=== PATIENT | male | born 1965 | race Two or more races ===

== ENCOUNTER → 2022-11-10 | Emergency (ER) | payer OTHER ==
[~2022-11-10] VITALS: Ht 180.3 cm; Wt 136.1 kg
== END | disposition home or self-care (01) ==
LOC: ER 00:47
DX: L03.115 Cellulitis of right lower limb (principal)

== ENCOUNTER 2023-02-12 02:47 | Emergency (ER) | payer OTHER ==
[~2023-02-12] VITALS: Ht 182.9 cm; Wt 131.5 kg
[2023-02-12] MEDS ORDERED: LASIX40 MG (03:05)
[2023-02-12] MEDS ORDERED: KETO10TA2 PO (04:50)
[2023-02-12] MEDS ORDERED: MUPIROCIN1 G1 TOP (04:50)
== END 2023-02-12 04:56 | disposition home or self-care (01) ==
LOC: ER 02:47
DX: I83.019 Varicose veins of right lower extremity with ulcer of unspecified site (principal)

== ENCOUNTER 2023-09-07 13:20 | Inpatient (IN) | payer OTHER ==
[~2023-09-07] VITALS: Ht 177.8 cm; Wt 127.0 kg
[~2023-09-07 13:20] MED LIST: KETO10TA2 PO; LASIX40 MG; MUPIROCIN1 G1 TOP
[2023-09-07 16:34] LABS: URINE APPEARANCE Clear; URINE BILIRRUBIN Negative (NEGATIVE); URINE BLOOD Negative; URINE COLOR Yellow; URINE GLUCOSE Negative (NEGATIVE); URINE LEUKOCYTE Negative; URINE NITRATE Negative; URINE PROTEIN Negative (NEGATIVE)
[2023-09-07 16:38] LABS: URINE BACTERIA 11.3 uL (0.0-1933); URINE RBC 3.3 uL (0.0-20.8)
[2023-09-07 16:47] LABS: URINE WBC 1.2 uL (0.0-23.2)
[2023-09-07 16:48] LABS: MEAN CORPUSCULAR HGB CONC 28.4 g/dl (32.0-36.0); RED BLOOD COUNT 3.11 M/uL (4.00-6.00); RED CELL DISTRIBUTION WIDTH 20.4 % (11.5-14.5)
[2023-09-07 16:55] LABS: CALCIUM 8.8 mg/dL (8.5-10.1); CREATININE SERUM 1.16 mg/dL (0.70-1.30); GFR 65.13; POTASSIUM 4.02 mEq/L (3.5-5.1)
[2023-09-07 17:09] LABS: HEMATOCRIT 17.5 % (39.0-48.0); MEAN CELL VOLUME 56.3 fL (80.0-100.00)
[2023-09-07 20:00] LABS: PLATELET COUNT 805 K/uL (150-450)
[2023-09-08 00:53] LABS: INR 1.08; PARTIAL THROMBOPLASTIN TIME 27.9 SECONDS (22.0-34.0); PROTHROMBIN TIME 11.3 SECONDS (9.0-11.5)
[2023-09-09 20:41] LABS: MEAN CORPUSCULAR HGB CONC 30.6 g/dl (32.0-36.0); PLATELET COUNT 684 K/uL (150-450); RED BLOOD COUNT 3.82 M/uL (4.00-6.00)
[2023-09-09 20:42] LABS: MEAN CORPUSCULAR HEMOGLOBIN 19.3 pg (27.00-32.0); RED CELL DISTRIBUTION WIDTH 27.9 % (11.5-14.5)
[2023-09-09 20:44] LABS: HEMOGLOBIN 7.4 g/dL (13-16.00)
[2023-09-10 18:46] LABS: HEMATOCRIT 26.9 % (39.0-48.0); PLATELET COUNT 701 K/uL (150-450); RED BLOOD COUNT 4.11 M/uL (4.00-6.00)
[2023-09-10 18:47] LABS: HEMOGLOBIN 8.1 g/dL (13-16.00); MEAN CELL VOLUME 65.6 fL (80.0-100.00); MEAN CORPUSCULAR HEMOGLOBIN 19.7 pg (27.00-32.0); RED CELL DISTRIBUTION WIDTH 29.1 % (11.5-14.5)
[2023-09-11 01:33] LABS: HEMATOCRIT 29.6 % (39.0-48.0); MEAN CORPUSCULAR HGB CONC 31.8 g/dl (32.0-36.0)
[2023-09-11 01:38] LABS: MEAN CELL VOLUME 67.3 fL (80.0-100.00); PLATELET COUNT 695 K/uL (150-450); RED CELL DISTRIBUTION WIDTH 31.4 % (11.5-14.5)
[2023-09-11 01:39] LABS: HEMOGLOBIN 9.4 g/dL (13-16.00); MEAN CORPUSCULAR HEMOGLOBIN 21.3 pg (27.00-32.0)
[2023-09-11 16:49] LABS: HEMATOCRIT 33.3 % (39.0-48.0); HEMOGLOBIN 10.3 g/dL (13-16.00); MEAN CORPUSCULAR HEMOGLOBIN 20.6 pg (27.00-32.0); MEAN CORPUSCULAR HGB CONC 30.8 g/dl (32.0-36.0); PLATELET COUNT 754 K/uL (150-450); RED BLOOD COUNT 4.99 M/uL (4.00-6.00)
[2023-09-11 17:00] LABS: MEAN CELL VOLUME 66.8 fL (80.0-100.00)
[2023-09-11 17:05] LABS: FERRITIN 30.9 NG/ML (26-388)
[2023-09-11 18:24] LABS: ob POSITIVE (NEGATIVE)
[2023-09-12 06:23] LABS: HEMATOCRIT 30.8 % (39.0-48.0); HEMOGLOBIN 9.5 g/dL (13-16.00); MEAN CORPUSCULAR HEMOGLOBIN 21.3 pg (27.00-32.0); MEAN CORPUSCULAR HGB CONC 30.9 g/dl (32.0-36.0); PLATELET COUNT 640 K/uL (150-450); RED BLOOD COUNT 4.45 M/uL (4.00-6.00)
[2023-09-12 06:32] LABS: MEAN CELL VOLUME 69.1 fL (80.0-100.00); RED CELL DISTRIBUTION WIDTH 31.4 % (11.5-14.5)
[2023-09-12 06:54] LABS: ALBUMIN 2.8 gm/dL (3.4-5.0); BILIRUBIN TOTAL 0.93 mg/dL (0.3-1.2); CALCIUM 8.8 mg/dL (8.5-10.1); CREATININE SERUM 0.99 mg/dL (0.70-1.30); GFR 78.2; GLOBULINA 4.3 G/DL (2.4-3.5); MAGNESIUM 2.3 mg/dL (1.8-2.4); PHOSPHOROUS 3.4 mg/dL (2.5-4.9); POTASSIUM 4.7 mEq/L (3.5-5.1); TOTAL PROTEIN 7.1 gm/dL (6.4-8.2)
[2023-09-16 06:27] LABS: HEMATOCRIT 34.4 % (39.0-48.0); HEMOGLOBIN 10.8 g/dL (13-16.00); MEAN CELL VOLUME 70.9 fL (80.0-100.00); MEAN CORPUSCULAR HEMOGLOBIN 22.2 pg (27.00-32.0); MEAN CORPUSCULAR HGB CONC 31.2 g/dl (32.0-36.0); PLATELET COUNT 649 K/uL (150-450); RED BLOOD COUNT 4.85 M/uL (4.00-6.00); RED CELL DISTRIBUTION WIDTH 32.9 % (11.5-14.5)
[2023-09-20 11:19] LABS: HEMATOCRIT 33.3 % (39.0-48.0); HEMOGLOBIN 10.6 g/dL (13-16.00); MEAN CELL VOLUME 71.4 fL (80.0-100.00); MEAN CORPUSCULAR HEMOGLOBIN 22.7 pg (27.00-32.0); MEAN CORPUSCULAR HGB CONC 31.9 g/dl (32.0-36.0); PLATELET COUNT 626 K/uL (150-450); RED BLOOD COUNT 4.67 M/uL (4.00-6.00); RED CELL DISTRIBUTION WIDTH 31.6 % (11.5-14.5)
[2023-09-20 11:21] LABS: ALBUMIN 2.8 gm/dL (3.4-5.0); BILIRUBIN TOTAL 0.45 mg/dL (0.3-1.2); CALCIUM 9.1 mg/dL (8.5-10.1); CREATININE SERUM 0.88 mg/dL (0.70-1.30); GFR 89.58; GLOBULINA 4.3 G/DL (2.4-3.5); POTASSIUM 3.58 mEq/L (3.5-5.1); TOTAL PROTEIN 7.1 gm/dL (6.4-8.2)
[2023-09-23 06:52] LABS: HEMOGLOBIN 10.9 g/dL (13-16.00); MEAN CELL VOLUME 70.5 fL (80.0-100.00); MEAN CORPUSCULAR HGB CONC 31.3 g/dl (32.0-36.0); PLATELET COUNT 667 K/uL (150-450); RED BLOOD COUNT 4.96 M/uL (4.00-6.00)
[2023-09-23 06:53] LABS: RED CELL DISTRIBUTION WIDTH 31.7 % (11.5-14.5)
[2023-09-23 06:59] LABS: HEMOGLOBIN 10.9 g/dL (13-16.00); RED BLOOD COUNT 4.95 M/uL (4.00-6.00)
[2023-09-23 07:17] LABS: CALCIUM 8.7 mg/dL (8.5-10.1); CREATININE SERUM 0.92 mg/dL (0.70-1.30); GFR 85.1; POTASSIUM 4.23 mEq/L (3.5-5.1)
[2023-09-25 07:40] LABS: HEMATOCRIT 32.2 % (39.0-48.0); HEMOGLOBIN 9.8 g/dL (13-16.00); MEAN CELL VOLUME 71.1 fL (80.0-100.00); MEAN CORPUSCULAR HEMOGLOBIN 21.7 pg (27.00-32.0); MEAN CORPUSCULAR HGB CONC 30.5 g/dl (32.0-36.0); PLATELET COUNT 543 K/uL (150-450); RED BLOOD COUNT 4.53 M/uL (4.00-6.00)
[2023-09-25 07:43] LABS: RED CELL DISTRIBUTION WIDTH 32.1 % (11.5-14.5)
[2023-09-25 07:56] LABS: ALBUMIN 2.4 gm/dL (3.4-5.0); BILIRUBIN TOTAL 0.53 mg/dL (0.3-1.2); CALCIUM 8.5 mg/dL (8.5-10.1); CREATININE SERUM 0.84 mg/dL (0.70-1.30); GFR 94.52; GLOBULINA 3.7 G/DL (2.4-3.5); MAGNESIUM 2.1 mg/dL (1.8-2.4); PHOSPHOROUS 2.5 mg/dL (2.5-4.9); POTASSIUM 3.88 mEq/L (3.5-5.1); TOTAL PROTEIN 6.1 gm/dL (6.4-8.2)
[2023-09-25 07:57] LABS: C-REACTIVE PROTEIN 16.3 MG/DL (0.00-0.29)
[2023-09-25 08:18] LABS: PLATELET ESTIMATE INCREASED (NORMAL)
[2023-09-26 12:06] LABS: URINE APPEARANCE Clear; URINE BILIRRUBIN Negative (NEGATIVE); URINE BLOOD Negative; URINE COLOR Yellow; URINE GLUCOSE Negative (NEGATIVE); URINE LEUKOCYTE Negative; URINE NITRATE Negative; URINE PROTEIN Negative (NEGATIVE); URINE UROBILINOGEN 0.2 E.U./dl
[2023-09-26 12:08] LABS: URINE BACTERIA 6.2 uL (0.0-1933); URINE EPITHELIAL CELLS 2.1 uL (0.0-38.8); URINE RBC 20.2 uL (0.0-20.8); URINE WBC 2.6 uL (0.0-23.2)
[2023-09-29 06:41] LABS: HEMATOCRIT 33.8 % (39.0-48.0); HEMOGLOBIN 10.7 g/dL (13-16.00); MEAN CELL VOLUME 71.7 fL (80.0-100.00); MEAN CORPUSCULAR HEMOGLOBIN 22.7 pg (27.00-32.0); MEAN CORPUSCULAR HGB CONC 31.7 g/dl (32.0-36.0); PLATELET COUNT 489 K/uL (150-450); RED BLOOD COUNT 4.72 M/uL (4.00-6.00)
[2023-09-29 08:08] LABS: RED CELL DISTRIBUTION WIDTH 31.7 % (11.5-14.5)
== END 2023-09-29 17:31 | disposition home or self-care (01) | DRG 330 ==
LOC: ER 13:21 → SURH 09-08 17:11
PROVIDERS: General Practice; Internal Medicine; Internal Medicine Hematology & Oncology; Internal Medicine Infectious Disease; Surgery; ADMIT Internal Medicine; ATTEND Internal Medicine
PROC: 30243N1 Transfusion of Nonautologous Red Blood Cells into Central Vein, Percutaneous Approach (ICD-10-PCS; 2023-09-07)
PROC: B54DZZZ Ultrasonography of Bilateral Lower Extremity Veins (ICD-10-PCS; 2023-09-07)
PROC: BW21YZZ Computerized Tomography (CT Scan) of Abdomen and Pelvis using Other Contrast (ICD-10-PCS; 2023-09-07)
PROC: 02HV33Z Insertion of Infusion Device into Superior Vena Cava, Percutaneous Approach (ICD-10-PCS; 2023-09-16)
PROC: 0DJD8ZZ Inspection of Lower Intestinal Tract, Via Natural or Artificial Opening Endoscopic (ICD-10-PCS; 2023-09-17)
PROC: 0DTF4ZZ Resection of Right Large Intestine, Percutaneous Endoscopic Approach (ICD-10-PCS; 2023-09-22)
PROC: 8E0W4CZ Robotic Assisted Procedure of Trunk Region, Percutaneous Endoscopic Approach (ICD-10-PCS; 2023-09-22)
PROC: 0D1L4Z4 Bypass Transverse Colon to Cutaneous, Percutaneous Endoscopic Approach (ICD-10-PCS; principal; 2023-09-22 17:15)
DX: K92.2 Gastrointestinal hemorrhage, unspecified (principal); C18.2 Malignant neoplasm of ascending colon; K56.600 Partial intestinal obstruction, unspecified as to cause; C77.2 Secondary and unspecified malignant neoplasm of intra-abdominal lymph nodes; I87.313 Chronic venous hypertension (idiopathic) with ulcer of bilateral lower extremity; L97.529 Non-pressure chronic ulcer of other part of left foot with unspecified severity; L97.519 Non-pressure chronic ulcer of other part of right foot with unspecified severity; I10 Essential (primary) hypertension; D50.9 Iron deficiency anemia, unspecified; L97.523 Non-pressure chronic ulcer of other part of left foot with necrosis of muscle; L97.513 Non-pressure chronic ulcer of other part of right foot with necrosis of muscle; R97.0 Elevated carcinoembryonic antigen [CEA]; Z74.01 Bed confinement status; K63.9 Disease of intestine, unspecified; K66.0 Peritoneal adhesions (postprocedural) (postinfection); R59.0 Localized enlarged lymph nodes; B96.4 Proteus (mirabilis) (morganii) as the cause of diseases classified elsewhere; B95.2 Enterococcus as the cause of diseases classified elsewhere; B96.5 Pseudomonas (aeruginosa) (mallei) (pseudomallei) as the cause of diseases classified elsewhere